=== PATIENT | female | born 1975 | race Caucasian/White ===

== ENCOUNTER 2019-05-21 08:00 | Outpatient (REF) | payer BC, SELFPAY ==
--- NOTE | 2019-05-21 11:00 | PAPFT_PTH ---
PATIENT: Laura Woods LOC: [facility] U#:[id number] AGE/SX: 43/F ROOM: RE05/21/[address]: Brennon Asencio : 1975 BED: DIS: 05/21/2019 SPEC #: [id number] RECD: 05/23/19 12:46 STATUS: PARTH RELucia #: [id number] MONTY: 05/21/19 11:[address]: Brennon Asencio DEPT: [facility]MERLY [facility] Cytology RECD BY: Xenia Dumont Tissues: 1 - CX/ENDOCX FOR PAP SMEARS Procedures: PAP THIN PREP/[facility] Screening HPV DNA PROBE Comments: [id number] (CHLAMYDIA/GC)
[2019-05-26 13:15] LABS: Chlamydia Result Negative (Negative); GC Result Negative (Negative)
== END 2019-05-21 08:20 ==
LOC: LBN 08:00
PROVIDERS: PCP Naturopath; Visit Provider Naturopath
DX: N76.0 Acute vaginitis (principal); Z11.3 Encounter for screening for infections with a predominantly sexual mode of transmission; Z12.4 Encounter for screening for malignant neoplasm of cervix
CPT/HCPCS: 87491; 87591; 88142; 87480; 87510; 87624; 87660

== ENCOUNTER 2019-07-08 09:04 | Outpatient (CLI) | payer BC, SELFPAY ==
[2019-07-08 09:55] LABS: Abs Immature Grans 0.01 k/cumm (0.0-0.09); Absolute Basophil Count 0.04 k/cumm (0.0-0.2); Absolute Eosinophil Count 0.13 k/cumm (0.0-0.7); Absolute Lymphocyte Count 1.37 k/cumm (1.2-3.4); Absolute Monocyte Count 0.46 k/cumm (0.11-0.7); Absolute Neutrophil Count 2.42 k/cumm (1.2-6.7); Basophils % 0.9; Eosinophils % 2.9; HCT 43.5 % (36.0-46.0); HGB 14.7 g/dL (12.0-15.5); Immature Grans % 0.2 %; Lymphocytes % 30.9; Mean Corp. HGB Concentration 33.8 g/dL (32.0-36.0); Mean Corpuscular Hemoglobin 30.7 pg (27.0-33.0); Mean Corpuscular Volume 90.8 fL (80-95); Mean Platelet Volume 9.9 fL (8.0-11.0); Monocytes % 10.4; Neutrophils % 54.7; Platelet Count 209 x1000/uL (130-400); RBC 4.79 m/cumm (4.00-5.20); RBC Distribution Width 12.1 % (11.7-14.6); White Blood Cell Count 4.43 k/cumm (4.4-10.8)
[2019-07-08 10:40] LABS: ESR 6 mm/hr (0-20)
[2019-07-08 11:23] LABS: ALT 21 U/L (14-59); AST 9 U/L (15-37); Albumin 4.3 g/dL (3.4-5.0); Alkaline Phosphatase 56 U/L (46-116); Anion Gap 10.9 mmol/L (3-11); BUN 8 mg/dL (7-18); Bilirubin, Total 0.9 mg/dL (0.2-1.0); CO2 27.1 mmol/L (21.0-32.0); CREATININE 0.64 mg/dL (0.55-1.02); Chloride 103 mmol/L (98-107); Ferritin 46 ng/mL (8-252); Glucose 85 mg/dL (74-106); Potassium 4.2 mmol/L (3.5-5.1); Sodium 141 mmol/L (136-145); Total Protein 7.3 g/dL (6.4-8.2); Vitamin B12 440 pg/mL (193-986)
[2019-07-08 14:40] LABS: Bilirubin, Direct 0.17 mg/dL (0.00-0.20)
[2019-07-10 05:05] LABS: Vitamin D 25 Total 52.3 ng/ml (30-100)
== END 2019-07-08 09:24 ==
PROVIDERS: PCP Naturopath; Visit Provider Naturopath
DX: Z00.00 Encounter for general adult medical examination without abnormal findings (principal); D50.9 Iron deficiency anemia, unspecified; D53.9 Nutritional anemia, unspecified; E55.9 Vitamin D deficiency, unspecified; E80.7 Disorder of bilirubin metabolism, unspecified; M54.5 Low back pain
CPT/HCPCS: 36415; 80053; 82306; 85652; 82248; 82607; 82728; 85025

== ENCOUNTER 2020-12-16 13:18 | Outpatient (REF) | payer BC, SELFPAY ==
--- NOTE | 2020-12-16 11:30 | PAPFT_PTH ---
PATIENT: Laura Woods LOC: [facility] U#:[id number] AGE/SX: 45/F ROOM: RE12/16/[address]: Brennon Asencio : 1975 BED: DIS: 12/16/2020 SPEC #: [id number] RECD: 12/17/20 13:21 STATUS: PARTH RELucia #: [id number] MONTY: 12/16/20 11:[address]: Brennon Asencio DEPT: [facility] Cytology RECD BY: Xenia Dumont Tissues: 1 - CX/ENDOCX FOR PAP SMEARS Procedures: PAP THIN PREP/[facility] Screening Comments: [id number]
== END 2020-12-16 13:19 | disposition home or self-care (01) ==
LOC: LBN 13:18
PROVIDERS: PCP Naturopath; Visit Provider Naturopath
DX: Z12.4 Encounter for screening for malignant neoplasm of cervix (principal); Z01.419 Encounter for gynecological examination (general) (routine) without abnormal findings
CPT/HCPCS: 88142

== ENCOUNTER 2024-07-28 11:51 | Outpatient (REF) | payer BC, SELFPAY ==
--- NOTE | 2024-07-28 11:00 | PAPFT_PTH ---
PATIENT: Laura Woods LOC: [facility] U#:[id number] AGE/SX: 48/F ROOM: RE07/28/[address]: Brennon Asencio : 1975 BED: DIS: 07/28/2024 SPEC #: [id number] RECD: 07/29/24 13:11 STATUS: PARTH RELucia #: [id number] MONTY: 07/28/24 11:[address]: Brennon Asencio DEPT: [facility] Cytology RECD BY: Xenia Dumont Tissues: 1 - CX/ENDOCX FOR PAP SMEARS Procedures: PAP THIN PREP/[facility] Screening Comments: [id number] (CHLAMYDIA/GC)
[2024-07-30 12:37] LABS: Chlamydia Result Negative (Negative); GC Result Negative (Negative)
== END 2024-07-28 11:52 | disposition home or self-care (01) ==
LOC: LBN 11:51
PROVIDERS: PCP Naturopath; Visit Provider Naturopath
DX: Z12.4 Encounter for screening for malignant neoplasm of cervix (principal); Z11.3 Encounter for screening for infections with a predominantly sexual mode of transmission; B37.31 Acute candidiasis of vulva and vagina
CPT/HCPCS: 87491; 87591; 88142